=== PATIENT | male | born 2000 | race African-American/Black ===

== ENCOUNTER 2021-04-28 20:39 | Emergency (ER) | payer BC ==
[2021-04-28 20:46] VITALS: BP 145/90; PULSE 79; TEMP 98.1; BMI 27.2
[2021-04-28] MEDS ORDERED: predniSONE 20 MG TABLET (UD) PO ONE (21:08)
[2021-04-28] MEDS ORDERED: FAMOTIDINE 20 MG TABLET PO ONE (21:08)
[2021-04-28] MEDS ORDERED: FAMOTIDINE 20 MG TABLET ONE (21:14)
[2021-04-28] MEDS ORDERED: predniSONE 20 MG TABLET (UD) ONE (21:15)
== END 2021-04-28 22:08 | disposition home or self-care (01) ==
LOC: JER 20:39 → JERFT 20:39
PROC: 3E023GC Introduction of Other Therapeutic Substance into Muscle, Percutaneous Approach (ICD-10-PCS; principal; 2021-04-28)
DX: T78.40XA Allergy, unspecified, initial encounter (principal)
CPT/HCPCS: 99284-25